=== PATIENT | female | born 1950 | race Asian ===

== ENCOUNTER 2021-01-12 09:12 | Inpatient (IN) | payer MEDICAID ==
[~2021-01-12] VITALS: Ht 142.2 cm; Wt 54.4 kg
[2021-01-12] MEDS ORDERED: KETOROLAC 30MG/ML VIAL IV STA (10:53)
[2021-01-12 12:00] LABS: CLARITY URINE CLEAR (CLEAR); COLOR URINE YELLOW (YELLOW); KETONES URINE NEGATIVE (NEGATIVE); LEUKOCYTE ESTERASE URINE NEGATIVE (NEGATIVE); NITRITE URINE NEGATIVE (NEGATIVE); OCCULT BLOOD URINE NEGATIVE (NEGATIVE); PH URINE 5.5 (4.5-8.0); PROTEIN URINE 1+ (NEGATIVE); SPECIFIC GRAVITY URINE 1.007 (1.005-1.030); UROBILINOGEN URINE 0.2 E.U./dL (0.2-1.0)
[2021-01-12 12:02] LABS: BASOPHILS % 0.9 % (0.0-2.0); EOSINOPHILS % 6.8 % (0.0-5.0); HEMATOCRIT. 28.2 % (36.0-48.0); HEMOGLOBIN. 9.5 g/dL (12.0-16.0); LYMPHOCYTES % 22.8 % (20.0-50.0); MEAN CORPUSCULAR HEMOGLOBIN 31.4 pg (28.0-32.0); MEAN PLATELET VOLUME 7.6 fl (7.4-10.4); NEUTROPHILS % 62.5 % (40.0-76.0); PLATELET 235 x1000/uL (130-400); RED BLOOD CELL COUNT 3.03 mill/uL (4.2-5.4); RED CELL DISTRIBUTION WIDTH 13.4 % (11.6-14.6)
[2021-01-12 12:03] LABS: CHLORIDE 116 mEq/L (98-107)
[2021-01-12] MEDS ORDERED: FUROSEMIDE 100MG/10ML VIAL IV STA (12:14)
[2021-01-12] MEDS ORDERED: ALBUTEROL (0.083%) 2.5MG/3ML NEB HHN ONE (12:15)
[2021-01-12] MEDS ORDERED: INSULIN REGULAR (HUMULIN R) 300UNITS/3ML VIAL IV ONE (12:15)
[2021-01-12] MEDS ORDERED: DEXTROSE 50% WATER 50ML SYRINGE IV ONE (12:15)
[2021-01-12] MEDS ORDERED: CALCIUM CHLORIDE 1GM/10ML SYR IV ONE (12:15)
[2021-01-12] MEDS ORDERED: SODIUM BICARBONATE 8.4% 1 MEQ/ML 50ML SYR IV ONE (12:15)
[2021-01-12] MEDS ORDERED: SODIUM CHLORIDE 0.9% 1,000 ML IV ONE (13:00)
[2021-01-12] MEDS ORDERED: ENOXAPARIN 40MG/0.4ML SYR SUBCUT SCH (13:45)
[2021-01-12] MEDS ORDERED: DOCUSATE SODIUM 100MG CAPSULE PO PRN (13:45)
[2021-01-12] MEDS ORDERED: HYDROCODONE/ACETAMINOPHEN 5/325MG TABLET PO PRN (13:45)
[2021-01-12] MEDS ORDERED: NITROGLYCERIN 0.4MG TABLET SL SL PRN (13:45)
[2021-01-12] MEDS ORDERED: ONDANSETRON HCL 4MG/2ML INJ IV PRN (13:45)
[2021-01-12] MEDS ORDERED: ACETAMINOPHEN 325MG TABLET PO PRN (13:45)
[2021-01-12] MEDS ORDERED: GUAIFENESIN 200MG/10ML SUGAR FREE UDC PO PRN (13:45)
[2021-01-12] MEDS ORDERED: NALOXONE HCL 0.4MG/ML VIAL IV PRN (13:45)
[2021-01-12] MEDS ORDERED: CLONIDINE 0.1MG TABLET PO PRN (13:45)
[2021-01-12] MEDS ORDERED: MAGNESIUM/ALUMINUM HYDROXIDE/SIMETHICONE 30ML UDC PO PRN (13:45)
[2021-01-12] MEDS ORDERED: ENOXAPARIN 30MG/0.3ML SYR SUBCUT SCH (14:00)
[2021-01-12 14:47] LABS: CREATINE KINASE 96 IU/L (26-192)
[2021-01-12 20:45] VITALS: BP 104/40
[2021-01-12] MEDS ORDERED: DEXTROSE 50% WATER 50ML SYRINGE IV PRN (23:45)
[2021-01-12] MEDS: INSULIN LISPRO 100 UNITS/ML SUBCUT SCH (23:55)
[2021-01-13] VITALS: BP 106/55
[2021-01-13] MEDS ORDERED: SODIUM POLYSTYRENE SULFONATE 15 G/60 ML BOT PO NR (01:30)
[2021-01-13 04:00] VITALS: BP 126/65
[2021-01-13 06:06] LABS: BASOPHILS % 0.9 % (0.0-2.0); HEMATOCRIT. 30.8 % (36.0-48.0); HEMOGLOBIN. 10.2 g/dL (12.0-16.0); LYMPHOCYTES % 21.6 % (20.0-50.0); MEAN CORPUSCULAR HEMOGLOBIN 30.9 pg (28.0-32.0); MEAN CORPUSCULAR VOLUME 93.2 fL (81.0-99.0); MEAN PLATELET VOLUME 7.9 fl (7.4-10.4); MONOCYTES % 9.5 % (2.0-8.0); PLATELET 250 x1000/uL (130-400); RED BLOOD CELL COUNT 3.31 mill/uL (4.2-5.4); RED CELL DISTRIBUTION WIDTH 13.6 % (11.6-14.6)
[2021-01-13] MEDS ORDERED: ATOR10TA69 MT (06:13)
[2021-01-13] MEDS ORDERED: FERR324T4 MT (06:13)
[2021-01-13] MEDS ORDERED: LOSA25TA26 MT (06:13)
[2021-01-13] MEDS ORDERED: GABA-529 MT (06:13)
[2021-01-13] MEDS ORDERED: TOPUD MT (06:13)
[2021-01-13] MEDS ORDERED: HYDR473S50 PO (06:13)
[2021-01-13] MEDS ORDERED: HYDR10TA34 MT (06:13)
[2021-01-13] MEDS ORDERED: METF-414 MT (06:13)
[2021-01-13 06:32] LABS: CHLORIDE 113 mEq/L (98-107)
[2021-01-13 06:48] LABS: LDL CHOLESTEROL 55 mg/dL (5-100)
[2021-01-13 06:52] LABS: HDL CHOLESTEROL 52 mg/dL (40-59)
[2021-01-13] MEDS: BLOOD SUGAR DIAGNOSTIC STRIP TEST SCH ×2 (07:10→11:51)
[2021-01-13] MEDS: INSULIN LISPRO 100 UNITS/ML SUBCUT SCH ×2 (07:17→12:58)
[2021-01-13 07:59] VITALS: BP 99/58
[2021-01-13] MEDS ORDERED: ASPIRIN 81MG EC TABLET PO SCH (09:00)
[2021-01-13 12:06] VITALS: BP 107/51
[2021-01-13 12:34] VITALS: BP 107/51
== END 2021-01-13 13:55 | disposition home or self-care (01) | DRG 203 ==
LOC: ER 09:12 → 6WST 13:00 → ENRESERV 20:03
PROVIDERS: ADMIT Hospitalist; ATTEND Hospitalist
DX: M94.0 Chondrocostal junction syndrome [Tietze] (principal); N17.9 Acute kidney failure, unspecified; E44.1 Mild protein-calorie malnutrition; D63.8 Anemia in other chronic diseases classified elsewhere; J44.9 Chronic obstructive pulmonary disease, unspecified; R74.01 Elevation of levels of liver transaminase levels; Z20.822 Contact with and (suspected) exposure to COVID-19; E11.9 Type 2 diabetes mellitus without complications; E87.5 Hyperkalemia; Z79.84 Long term (current) use of oral hypoglycemic drugs; Z68.26 Body mass index [BMI] 26.0-26.9, adult
CPT/HCPCS: 36415; 71045; 80048; 80053; 80061; 81003; 82550; 82962; 83036; 83880; 84484; 85025; 87426; 93005; 93306; 93970; 94644; 99291; J1650; J1815; J1885; J1940; J3490; J7030

== ENCOUNTER 2021-11-17 19:25 | Inpatient (IN) | payer MEDICAID ==
[~2021-11-17] VITALS: Ht 137.2 cm; Wt 56.2 kg
[~2021-11-17 19:25] MED LIST: ATOR10TA69 MT; FERR324T4 MT; GABA-529 MT; HYDR10TA34 MT; HYDR473S50 PO; LOSA25TA26 MT; METF-414 MT; TOPUD MT
[2021-11-17] MEDS ORDERED: ASPIRIN 81MG TABLET PO ONE (19:45)
[2021-11-17] MEDS ORDERED: KETOROLAC 15MG/ML VIAL IV ONE (19:45)
[2021-11-17 20:18] LABS: BASOPHILS % 0.7 % (0.0-2.0); EOSINOPHILS % 6.7 % (0.0-5.0); HEMOGLOBIN. 9.8 g/dL (12.0-16.0); LYMPHOCYTES % 35.3 % (20.0-50.0); MEAN CORPUSCULAR HEMOGLOBIN 31.2 pg (28.0-32.0); MEAN CORPUSCULAR VOLUME 94.8 fL (81.0-99.0); MEAN PLATELET VOLUME 7.9 fl (7.4-10.4); MONOCYTES % 8.6 % (2.0-8.0); NEUTROPHILS % 48.7 % (40.0-76.0); PLATELET 195 x1000/uL (130-400); RED BLOOD CELL COUNT 3.16 mill/uL (4.2-5.4); RED CELL DISTRIBUTION WIDTH 13.3 % (11.6-14.6)
[2021-11-17 20:31] LABS: CHLORIDE 110 mEq/L (98-107)
[2021-11-17 20:39] LABS: CREATINE KINASE 195 IU/L (26-192)
[2021-11-18] MEDS ORDERED: ACETAMINOPHEN 500MG TABLET PO NR ×2 (04:15→06:30)
[2021-11-18] MEDS ORDERED: SODIUM CHLORIDE 0.9% 1,000 ML IV ONE (04:45)
[2021-11-18] MEDS ORDERED: KETOROLAC 15MG/ML VIAL IV NR (06:30)
[2021-11-18] MEDS ORDERED: ASPIRIN 81MG TABLET PO NR (06:30)
[2021-11-18] MEDS ORDERED: ACETAMINOPHEN 325MG TABLET PO PRN (06:45)
[2021-11-18] MEDS ORDERED: ONDANSETRON HCL 4MG/2ML INJ IV PRN (06:45)
[2021-11-18] MEDS ORDERED: CLONIDINE 0.1MG TABLET PO PRN (06:45)
[2021-11-18] MEDS ORDERED: KETOROLAC 15MG/ML VIAL IV PRN (06:45)
[2021-11-18] MEDS ORDERED: MAGNESIUM/ALUMINUM HYDROXIDE/SIMETHICONE 30ML UDC PO PRN (06:45)
[2021-11-18] MEDS ORDERED: IPRATROPIUM/ALBUTEROL 0.5-3(2.5)MG/3ML NEB NEB PRN (06:45)
[2021-11-18] MEDS ORDERED: NITROGLYCERIN 0.4MG TABLET SL SL PRN (06:45)
[2021-11-18] MEDS ORDERED: GUAIFENESIN 200MG/10ML SUGAR FREE UDC PO PRN (06:45)
[2021-11-18] MEDS ORDERED: ZOLPIDEM TARTRATE 5MG TABLET PO PRN (06:45)
[2021-11-18] MEDS ORDERED: DOCUSATE SODIUM 100MG CAPSULE PO PRN (06:45)
[2021-11-18] MEDS ORDERED: DEXTROSE 50% WATER 50ML SYRINGE IV PRN (06:45)
[2021-11-18] MEDS: SODIUM CHLORIDE 0.9% 1,000 ML IV SCH (07:06)
[2021-11-18] MEDS: INSULIN LISPRO 100 UNITS/ML SUBCUT SCH ×4 (08:20→21:44)
[2021-11-18 08:46] LABS: T4 FREE 1.07 ng/dL (0.76-1.46)
[2021-11-18] MEDS: ASPIRIN 325MG EC TABLET PO SCH (09:11)
[2021-11-18] MEDS: AMLODIPINE 10MG TABLET PO SCH (09:12)
[2021-11-18] MEDS: FAMOTIDINE 20MG TABLET PO SCH (09:13)
[2021-11-18] MEDS: BLOOD SUGAR DIAGNOSTIC STRIP TEST SCH ×4 (09:13→21:23)
[2021-11-18] MEDS: ENOXAPARIN 30MG/0.3ML SYR SUBCUT SCH (09:15)
[2021-11-18 12:55] LABS: CLARITY URINE CLEAR (CLEAR); COLOR URINE YELLOW (YELLOW); KETONES URINE NEGATIVE (NEGATIVE); LEUKOCYTE ESTERASE URINE NEGATIVE (NEGATIVE); NITRITE URINE NEGATIVE (NEGATIVE); OCCULT BLOOD URINE NEGATIVE (NEGATIVE); PH URINE 5.5 (4.5-8.0); PROTEIN URINE NEGATIVE (NEGATIVE); UROBILINOGEN URINE 0.2 E.U./dL (0.2-1.0)
[2021-11-18 13:13] LABS: *AMPHETAMINES SCREEN URINE NEGATIVE (NEGATIVE); *BARBITURATES SCREEN URINE NEGATIVE (NEGATIVE); *BENZODIAZEPINES SCREEN URINE NEGATIVE (NEGATIVE); *COCAINE SCREEN URINE NEGATIVE (NEGATIVE); CANNABINOID URINE SCREEN NEGATIVE (NEGATIVE); METHADONE URINE SCREEN NEGATIVE (NEGATIVE); OPIATES URINE SCREEN NEGATIVE (NEGATIVE); PHENCYCLIDINE URINE SCREEN NEGATIVE (NEGATIVE)
[2021-11-18 20:00] VITALS: BP 138/73
[2021-11-18 21:33] LABS: CREATINE KINASE MB FRACTION 1.8 ng/mL (0.5-3.6)
[2021-11-18] MEDS ORDERED: FURO40TA5 MT (23:21)
[2021-11-18] MEDS ORDERED: ALOG25TA2 PO (23:21)
[2021-11-18] MEDS ORDERED: HYDR50SY PO (23:21)
[2021-11-18] MEDS ORDERED: ASCO500C15 MT (23:21)
[2021-11-18] MEDS ORDERED: ASPI-1497 MT (23:21)
[2021-11-18] MEDS ORDERED: MULT-1146 MT (23:21)
[2021-11-18] MEDS ORDERED: FERR325T30 PO (23:21)
[2021-11-18] MEDS ORDERED: TYLENOL CODEINE PO (23:21)
[2021-11-18] MEDS ORDERED: ATOR20TA65 MT (23:21)
[2021-11-18] MEDS ORDERED: BACL-141 MT (23:21)
[2021-11-19] VITALS: BP 147/83
[2021-11-19] MEDS: ACETAMINOPHEN 325MG TABLET PO PRN ×2 (00:46→22:27)
[2021-11-19 02:03] LABS: CREATINE KINASE MB FRACTION 1.4 ng/mL (0.5-3.6)
[2021-11-19] MEDS: SODIUM CHLORIDE 0.9% 1,000 ML IV SCH ×2 (03:50→22:20)
[2021-11-19 04:00] VITALS: BP 127/59
[2021-11-19] MEDS ORDERED: *PATIENT'S OWN MEDICATION STORAGE XX SCH (04:45)
[2021-11-19] MEDS: BLOOD SUGAR DIAGNOSTIC STRIP TEST SCH ×4 (07:04→20:27)
[2021-11-19 07:10] LABS: CHLORIDE 113 mEq/L (98-107)
[2021-11-19 07:17] LABS: PHOSPHORUS 3.8 mg/dL (2.5-4.9)
[2021-11-19] MEDS: INSULIN LISPRO 100 UNITS/ML SUBCUT SCH ×4 (07:45→20:27)
[2021-11-19 08:00] VITALS: BP 137/80
[2021-11-19 08:01] LABS: BASOPHILS % 0.5 % (0.0-2.0); EOSINOPHILS % 6.9 % (0.0-5.0); HEMATOCRIT. 28.3 % (36.0-48.0); HEMOGLOBIN. 9.4 g/dL (12.0-16.0); LYMPHOCYTES % 28.5 % (20.0-50.0); MEAN CORPUSCULAR HEMOGLOBIN 31.3 pg (28.0-32.0); MEAN CORPUSCULAR VOLUME 93.8 fL (81.0-99.0); MEAN PLATELET VOLUME 8.6 fl (7.4-10.4); MONOCYTES % 8.5 % (2.0-8.0); NEUTROPHILS % 55.6 % (40.0-76.0); PLATELET 181 x1000/uL (130-400); RED BLOOD CELL COUNT 3.02 mill/uL (4.2-5.4); RED CELL DISTRIBUTION WIDTH 13.1 % (11.6-14.6)
[2021-11-19] MEDS: ASPIRIN 325MG EC TABLET PO SCH (09:09)
[2021-11-19] MEDS: ENOXAPARIN 30MG/0.3ML SYR SUBCUT SCH (09:10)
[2021-11-19] MEDS: FAMOTIDINE 20MG TABLET PO SCH (09:10)
[2021-11-19] MEDS: AMLODIPINE 10MG TABLET PO SCH (09:10)
[2021-11-19 12:00] VITALS: BP 145/70
[2021-11-19 16:00] VITALS: BP 144/69
[2021-11-19 20:00] VITALS: BP 138/72
[2021-11-20] VITALS: BP 114/52
[2021-11-20 04:00] VITALS: BP 134/64
[2021-11-20] MEDS: BLOOD SUGAR DIAGNOSTIC STRIP TEST SCH ×4 (07:35→21:46)
[2021-11-20] MEDS: INSULIN LISPRO 100 UNITS/ML SUBCUT SCH ×4 (07:35→21:57)
[2021-11-20 08:00] VITALS: BP 138/60
[2021-11-20] MEDS: FAMOTIDINE 20MG TABLET PO SCH (08:53)
[2021-11-20] MEDS: ASPIRIN 325MG EC TABLET PO SCH (08:53)
[2021-11-20] MEDS: AMLODIPINE 10MG TABLET PO SCH (08:54)
[2021-11-20] MEDS: ENOXAPARIN 30MG/0.3ML SYR SUBCUT SCH (08:54)
[2021-11-20 12:00] VITALS: BP 132/54
[2021-11-20 16:00] VITALS: BP 95/59
[2021-11-20] MEDS: SODIUM CHLORIDE 0.9% 1,000 ML IV SCH (18:53)
[2021-11-20 20:00] VITALS: BP 131/66
[2021-11-21] VITALS: BP 138/88
[2021-11-21 04:00] VITALS: BP 119/68
[2021-11-21] MEDS: BLOOD SUGAR DIAGNOSTIC STRIP TEST SCH (07:40)
[2021-11-21 08:00] VITALS: BP 140/65
[2021-11-21] MEDS: INSULIN LISPRO 100 UNITS/ML SUBCUT SCH (08:10)
[2021-11-21] MEDS: ASPIRIN 325MG EC TABLET PO SCH (08:41)
[2021-11-21] MEDS: AMLODIPINE 10MG TABLET PO SCH (08:41)
[2021-11-21] MEDS: FAMOTIDINE 20MG TABLET PO SCH (08:41)
[2021-11-21] MEDS: ENOXAPARIN 30MG/0.3ML SYR SUBCUT SCH (08:42)
[2021-11-21] MEDS: ACETAMINOPHEN 325MG TABLET PO PRN (09:46)
[2021-11-21 10:52] VITALS: BP 140/65
== END 2021-11-21 10:40 | disposition home or self-care (01) | DRG 48 ==
LOC: ER 19:25 → 7WST 11-18 04:43 → ENRESERV 11-18 09:05 → CANRESERV 11-18 09:05 → ENRESERV 11-18 17:17
PROVIDERS: ADMIT Internal Medicine; ATTEND Internal Medicine
DX: E11.42 Type 2 diabetes mellitus with diabetic polyneuropathy (principal); N17.0 Acute kidney failure with tubular necrosis; E11.22 Type 2 diabetes mellitus with diabetic chronic kidney disease; D63.8 Anemia in other chronic diseases classified elsewhere; I12.9 Hypertensive chronic kidney disease with stage 1 through stage 4 chronic kidney disease, or unspecified chronic kidney disease; N18.9 Chronic kidney disease, unspecified; E78.00 Pure hypercholesterolemia, unspecified; Z20.822 Contact with and (suspected) exposure to COVID-19
CPT/HCPCS: 36415; 71045; 76770; 80048; 80053; 80061; 80305; 81003; 82550; 82553; 82607; 82746; 82962; 83036; 83540; 83550; 83605; 83735; 83880; 84100; 84439; 84443; 84484; 85025; 87426; 93005; 93970; 97162; 97165; 99285; C1893; C9803; J1650; J1815; J1885; J7030

== ENCOUNTER 2022-02-14 17:02 | Inpatient (IN) | payer MEDICAID ==
[~2022-02-14] VITALS: Ht 142.2 cm; Wt 61.2 kg
[~2022-02-14 17:02] MED LIST changes: +ALOG25TA2 PO; +ASCO500C15 MT; +ASPI-1497 MT; -ATOR10TA69 MT; +ATOR20TA65 MT; +BACL-141 MT; +FERR325T30 PO; +FURO40TA5 MT; -HYDR10TA34 MT; +HYDR50SY PO; +MULT-1146 MT; +TYLENOL CODEINE PO
[2022-02-14] MEDS ORDERED: SODIUM CHLORIDE 0.9% 1000ML BAG (SEPSIS BOLUS) IV ONE (18:30)
[2022-02-14] MEDS ORDERED: PIPERACILLIN/TAZ 3.375G PREMIX 50 ML IV ONE (18:30)
[2022-02-14] MEDS ORDERED: ACETAMINOPHEN 325MG TABLET PO STA (18:30)
[2022-02-14 19:05] LABS: CLARITY URINE CLEAR (CLEAR); COLOR URINE YELLOW (YELLOW); KETONES URINE NEGATIVE (NEGATIVE); LEUKOCYTE ESTERASE URINE NEGATIVE (NEGATIVE); NITRITE URINE NEGATIVE (NEGATIVE); OCCULT BLOOD URINE NEGATIVE (NEGATIVE); PH URINE 5.5 (4.5-8.0); PROTEIN URINE 2+ (NEGATIVE); SPECIFIC GRAVITY URINE 1.009 (1.005-1.030); UROBILINOGEN URINE 0.2 E.U./dL (0.2-1.0)
[2022-02-14 19:07] LABS: BASOPHILS % 0.1 % (0.0-2.0); EOSINOPHILS % 0.8 % (0.0-5.0); HEMOGLOBIN. 9.2 g/dL (12.0-16.0); LYMPHOCYTES % 11.5 % (20.0-50.0); MEAN CORPUSCULAR HEMOGLOBIN 30.2 pg (28.0-32.0); MEAN CORPUSCULAR VOLUME 92.2 fL (81.0-99.0); MEAN PLATELET VOLUME 8.4 fl (7.4-10.4); MONOCYTES % 1.5 % (2.0-8.0); NEUTROPHILS % 86.1 % (40.0-76.0); PLATELET 138 x1000/uL (130-400); RED BLOOD CELL COUNT 3.04 mill/uL (4.2-5.4); RED CELL DISTRIBUTION WIDTH 13.2 % (11.6-14.6)
[2022-02-14 19:50] LABS: CHLORIDE 105 mEq/L (98-107)
[2022-02-14] MEDS ORDERED: VANCOMYCIN 1G PREMIX 200 ML IV ONE (21:15)
[2022-02-14] MEDS ORDERED: HEPARIN 25,000 UNITS PREMIX 250 ML IV ONE (22:00)
[2022-02-14] MEDS ORDERED: HEPARIN 5000 UNITS/ML VIAL IV ONE (22:00)
[2022-02-14] MEDS ORDERED: ASPIRIN 81MG TABLET PO ONE (22:00)
[2022-02-14] MEDS ORDERED: HEPARIN 5000 UNITS/ML VIAL IV SCH (22:30)
[2022-02-14] MEDS: HEPARIN 25,000 UNITS PREMIX 250 ML IV PRN (23:10)
[2022-02-15] VITALS (11 sets, daily range): BP systolic 99–145; BP diastolic 52–78
[2022-02-15] MEDS ORDERED: IPRATROPIUM/ALBUTEROL 0.5-3(2.5)MG/3ML NEB HHN PRN (01:15)
[2022-02-15] MEDS ORDERED: ENOXAPARIN 40MG/0.4ML SYR SUBCUT SCH (01:15)
[2022-02-15] MEDS ORDERED: DOCUSATE SODIUM 100MG CAPSULE PO PRN (01:15)
[2022-02-15] MEDS ORDERED: MAGNESIUM/ALUMINUM HYDROXIDE/SIMETHICONE 30ML UDC PO PRN (01:15)
[2022-02-15] MEDS ORDERED: ACETAMINOPHEN 325MG TABLET PO PRN ×2 (01:15)
[2022-02-15] MEDS ORDERED: DEXTROSE 50% WATER 50ML SYRINGE IV PRN (01:15)
[2022-02-15] MEDS ORDERED: SODIUM CHLORIDE 0.9% 1,000 ML IV SCH (01:30)
[2022-02-15 02:03] LABS: TOTAL IRON BINDING CAPACITY 158 ug/dL (250-450)
[2022-02-15 02:46] LABS: VITAMIN B12 SERUM 1150 pg/mL (211-911)
[2022-02-15] MEDS: HYDROCODONE/ACETAMINOPHEN 5/325MG TABLET PO PRN ×2 (03:19→20:32)
[2022-02-15 04:16] LABS: FOLIC ACID (FOLATE) SERUM > 20.00 ng/mL (>5.38)
[2022-02-15 04:17] LABS: FERRITIN 314 ng/mL (10-291)
[2022-02-15] MEDS ORDERED: HEPARIN 5000 UNITS/ML VIAL IV PRN ×2 (05:30)
[2022-02-15 06:25] LABS: CREATINE KINASE MB FRACTION 3.1 ng/mL (0.5-3.6)
[2022-02-15] MEDS ORDERED: FUROSEMIDE 40MG TABLET PO SCH (07:15)
[2022-02-15] MEDS: BLOOD SUGAR DIAGNOSTIC STRIP TEST SCH ×4 (08:19→20:32)
[2022-02-15] MEDS: INSULIN LISPRO 100 UNITS/ML SUBCUT SCH ×4 (08:21→20:32)
[2022-02-15] MEDS: BACLOFEN 10MG TABLET PO SCH ×3 (08:25→17:00)
[2022-02-15] MEDS: FERROUS SULFATE 325MG TABLET PO SCH (08:25)
[2022-02-15] MEDS: ASPIRIN 81MG EC TABLET PO SCH (08:25)
[2022-02-15] MEDS: HYDROXYZINE 25MG TABLET PO SCH (08:36)
[2022-02-15] MEDS ORDERED: PIPERACILLIN/TAZOBACTAM 3.375 G in DEXTROSE 5% WATER 50 ML IV SCH (09:00)
[2022-02-15] MEDS ORDERED: LOSARTAN POTASSIUM 25 MG TABLET PO SCH (09:00)
[2022-02-15] MEDS ORDERED: HYDROXYZINE HCL 25 MG PO SCH (09:00)
[2022-02-15] MEDS ORDERED: GABAPENTIN 100MG CAPSULE PO SCH (09:00)
[2022-02-15] MEDS ORDERED: MEDICATION NOT ON FORMULARY EA (Ferrous Sulfate 1 TAB) MT SCH (09:00)
[2022-02-15] MEDS: PIPERACILLIN/TAZOBACTAM 3.375 G in DEXTROSE 5% WATER 50 ML IV SCH ×2 (09:28→20:31)
[2022-02-15 17:48] LABS: CREATINE KINASE MB FRACTION 3.4 ng/mL (0.5-3.6)
[2022-02-15] MEDS: ATORVASTATIN CALCIUM 20MG TABLET PO SCH (20:31)
[2022-02-15] MEDS ORDERED: VANCOMYCIN 500MG PREMIX 100 ML IV NR (21:00)
[2022-02-15 23:47] LABS: CREATINE KINASE MB FRACTION 2.7 ng/mL (0.5-3.6)
[2022-02-16] VITALS (12 sets, daily range): BP systolic 104–179; BP diastolic 58–92
[2022-02-16 06:25] LABS: HEMATOCRIT. 26.6 % (36.0-48.0); HEMOGLOBIN. 8.7 g/dL (12.0-16.0); MEAN CORPUSCULAR HEMOGLOBIN 30.6 pg (28.0-32.0); MEAN CORPUSCULAR VOLUME 93.8 fL (81.0-99.0); MEAN PLATELET VOLUME 8.5 fl (7.4-10.4); PLATELET 145 x1000/uL (130-400); RED BLOOD CELL COUNT 2.84 mill/uL (4.2-5.4); RED CELL DISTRIBUTION WIDTH 14.1 % (11.6-14.6)
[2022-02-16] MEDS: BLOOD SUGAR DIAGNOSTIC STRIP TEST SCH ×4 (07:30→20:34)
[2022-02-16] MEDS: INSULIN LISPRO 100 UNITS/ML SUBCUT SCH ×4 (08:00→20:33)
[2022-02-16 08:37] LABS: PLATELET ESTIMATE NORMAL
[2022-02-16] MEDS: ONDANSETRON HCL 4MG/2ML INJ IV PRN (09:07)
[2022-02-16] MEDS: PIPERACILLIN/TAZOBACTAM 3.375 G in DEXTROSE 5% WATER 50 ML IV SCH ×2 (09:44→20:34)
[2022-02-16] MEDS: FERROUS SULFATE 325MG TABLET PO SCH (09:55)
[2022-02-16] MEDS: ASPIRIN 81MG EC TABLET PO SCH (09:55)
[2022-02-16] MEDS: BACLOFEN 10MG TABLET PO SCH ×3 (09:55→17:00)
[2022-02-16] MEDS: HYDROXYZINE 25MG TABLET PO SCH (09:55)
[2022-02-16] MEDS: HEPARIN 25,000 UNITS PREMIX 250 ML IV PRN (10:43)
[2022-02-16 10:59] LABS: CHLORIDE 112 mEq/L (98-107)
[2022-02-16 11:14] LABS: HDL CHOLESTEROL 17 mg/dL (40-59); LDL CHOLESTEROL 43 mg/dL (5-100); T4 FREE 1.53 ng/dL (0.76-1.46)
[2022-02-16 16:28] LABS: BG BASE EXCESS -7.2 mmol/L (-2.0-2.0); BG CARBOXYHEMOGLOBIN 0.3 % (0.5-1.5); BG DEOXYHEMOGLOBIN 4.2 % (0.0-5.0); BG FRACTION INSPIRED OXYGEN 21; BG HCO3 ACT 17.4 mmol/L (22.0-26.0); BG METHEMOGLOBIN 0.2 % (0.0-1.5); BG OXYGEN SATURATION 95.8 % (92.0-98.5); BG OXYHEMOGLOBIN 95.3 % (94.0-97.0); BG PCO2 31.4 mmHg (35.0-45.0); BG PH 7.361 (7.350-7.450); BG PO2 81.8 mmHg (75.0-100.0); BG SAMPLE SITE RIGHT BRACHIAL; BG TOTAL HEMOGLOBIN 9.2 g/dL (12.0-18.0); BG VENT MODE ROOM AIR
[2022-02-16] MEDS ORDERED: SODIUM POLYSTYRENE SULFONATE 15 G/60 ML BOT PO NR (17:00)
[2022-02-16] MEDS ORDERED: SODIUM POLYSTYRENE SULFONATE 15 G/60 ML BOT PO ONE (17:00)
[2022-02-16 18:27] LABS: PARTIAL THROMBOPLASTIN TIME 48.7 sec (23.4-31.0); PROTHROMBIN TIME 10.3 sec (9.6-11.0)
[2022-02-16] MEDS ORDERED: SODIUM POLYSTYRENE SULFONATE 15 G/60 ML BOT PR NR (20:00)
[2022-02-16] MEDS: ATORVASTATIN CALCIUM 20MG TABLET PO SCH (20:34)
[2022-02-17] VITALS (12 sets, daily range): BP systolic 112–160; BP diastolic 66–78
[2022-02-17] MEDS: BLOOD SUGAR DIAGNOSTIC STRIP TEST SCH ×4 (07:30→21:31)
[2022-02-17] MEDS: INSULIN LISPRO 100 UNITS/ML SUBCUT SCH ×4 (08:00→21:00)
[2022-02-17] MEDS: ASPIRIN 81MG EC TABLET PO SCH (10:22)
[2022-02-17] MEDS: BACLOFEN 10MG TABLET PO SCH ×3 (10:22→17:51)
[2022-02-17] MEDS: FERROUS SULFATE 325MG TABLET PO SCH (10:22)
[2022-02-17] MEDS: PIPERACILLIN/TAZOBACTAM 3.375 G in DEXTROSE 5% WATER 50 ML IV SCH ×2 (10:23→21:31)
[2022-02-17] MEDS: HYDROXYZINE 25MG TABLET PO SCH (10:25)
[2022-02-17 11:25] LABS: CHLORIDE 112 mEq/L (98-107)
[2022-02-17] MEDS: SODIUM CHLORIDE 0.9% 1,000 ML IV SCH (11:30)
[2022-02-17] MEDS: CITRIC ACID/SODIUM CITRATE SOLN 15ML UDC PO SCH ×2 (13:00→17:51)
[2022-02-17] MEDS ORDERED: VANCOMYCIN 500MG PREMIX 100 ML IV NR (14:00)
[2022-02-17] MEDS: ATORVASTATIN CALCIUM 20MG TABLET PO SCH ×2 (21:00→21:31)
[2022-02-18] VITALS (12 sets, daily range): BP systolic 120–160; BP diastolic 55–80
[2022-02-18] MEDS: SODIUM CHLORIDE 0.9% 1,000 ML IV SCH ×2 (00:50→06:17)
[2022-02-18] MEDS: ONDANSETRON HCL 4MG/2ML INJ IV PRN (01:29)
[2022-02-18 06:03] LABS: BASOPHILS % 0.5 % (0.0-2.0); EOSINOPHILS % 0.8 % (0.0-5.0); HEMATOCRIT. 24.6 % (36.0-48.0); HEMOGLOBIN. 8.2 g/dL (12.0-16.0); LYMPHOCYTES % 19.2 % (20.0-50.0); MEAN CORPUSCULAR HEMOGLOBIN 30.7 pg (28.0-32.0); MEAN CORPUSCULAR VOLUME 91.7 fL (81.0-99.0); MEAN PLATELET VOLUME 8.1 fl (7.4-10.4); MONOCYTES % 7.7 % (2.0-8.0); NEUTROPHILS % 71.8 % (40.0-76.0); PLATELET 207 x1000/uL (130-400); RED BLOOD CELL COUNT 2.68 mill/uL (4.2-5.4); RED CELL DISTRIBUTION WIDTH 13.2 % (11.6-14.6)
[2022-02-18] MEDS: BLOOD SUGAR DIAGNOSTIC STRIP TEST SCH ×4 (07:30→21:16)
[2022-02-18] MEDS: INSULIN LISPRO 100 UNITS/ML SUBCUT SCH ×4 (08:00→21:00)
[2022-02-18] MEDS: ASPIRIN 81MG EC TABLET PO SCH (09:00)
[2022-02-18] MEDS: HYDROXYZINE 25MG TABLET PO SCH (09:00)
[2022-02-18] MEDS: BACLOFEN 10MG TABLET PO SCH ×3 (09:00→16:50)
[2022-02-18] MEDS: CITRIC ACID/SODIUM CITRATE SOLN 15ML UDC PO SCH ×3 (09:00→16:50)
[2022-02-18] MEDS: FERROUS SULFATE 325MG TABLET PO SCH (09:00)
[2022-02-18] MEDS: PIPERACILLIN/TAZOBACTAM 3.375 G in DEXTROSE 5% WATER 50 ML IV SCH ×2 (09:32→21:15)
[2022-02-18 11:01] LABS: CHLORIDE 113 mEq/L (98-107)
[2022-02-18 11:10] LABS: PHOSPHORUS 5.4 mg/dL (2.5-4.9)
[2022-02-18] MEDS ORDERED: LEVETIRACETAM 1000MG PREMIX 100 ML IV NR (11:30)
[2022-02-18] MEDS ORDERED: LEVETIRACETAM 1,000 MG in SODIUM CHLORIDE 0.9% 100 ML IV NR (12:00)
[2022-02-18] MEDS: DEXT 5%/0.9% NACL 1,000 ML IV SCH (14:31)
[2022-02-18] MEDS ORDERED: VANCOMYCIN 500MG PREMIX 100 ML IV NR (15:00)
[2022-02-18] MEDS ORDERED: NALOXONE HCL 0.4MG/ML VIAL IV PRN (17:00)
[2022-02-18] MEDS ORDERED: LEVETIRACETAM 500 MG in SODIUM CHLORIDE 0.9% 100 ML IV SCH (18:00)
[2022-02-18] MEDS: PANTOPRAZOLE SODIUM 40 MG/VIAL IV SCH (18:18)
[2022-02-18] MEDS: ENOXAPARIN 30MG/0.3ML SYR SUBCUT SCH (18:19)
[2022-02-18 20:49] LABS: CREATINE KINASE 50 IU/L (26-192); CREATINE KINASE MB FRACTION < 1.0 ng/mL (0.5-3.6)
[2022-02-18] MEDS: ATORVASTATIN CALCIUM 20MG TABLET PO SCH (21:00)
[2022-02-18] MEDS: LEVETIRACETAM 500MG PREMIX 100 ML IV SCH (21:17)
[2022-02-19] VITALS (9 sets, daily range): BP systolic 137–175; BP diastolic 65–98
[2022-02-19] MEDS: DEXT 5%/0.9% NACL 1,000 ML IV SCH ×2 (03:23→17:13)
[2022-02-19] MEDS: CLONIDINE 0.1MG TABLET PO PRN (06:13)
[2022-02-19 07:36] LABS: HEMATOCRIT 26.2 % (36.0-48.0); HEMOGLOBIN 8.6 g/dL (12.0-16.0); MEAN CORPUSCULAR HEMOGLOBIN 30.2 pg (28.0-32.0); MEAN CORPUSCULAR VOLUME 92.2 fL (81.0-99.0); PLATELET 246 x1000/uL (130-400); RED BLOOD CELL COUNT 2.84 mill/uL (4.2-5.4); RED CELL DISTRIBUTION WIDTH 13.5 % (11.6-14.6)
[2022-02-19] MEDS: INSULIN LISPRO 100 UNITS/ML SUBCUT SCH (08:00)
[2022-02-19] MEDS: HYDROXYZINE 25MG TABLET PO SCH (09:00)
[2022-02-19] MEDS: CITRIC ACID/SODIUM CITRATE SOLN 15ML UDC PO SCH ×3 (09:00→17:14)
[2022-02-19] MEDS: BACLOFEN 10MG TABLET PO SCH ×3 (09:00→17:14)
[2022-02-19] MEDS: ASPIRIN 81MG EC TABLET PO SCH (09:00)
[2022-02-19] MEDS: FERROUS SULFATE 325MG TABLET PO SCH (09:00)
[2022-02-19] MEDS: LEVETIRACETAM 500MG PREMIX 100 ML IV SCH ×2 (09:17→22:06)
[2022-02-19] MEDS: PANTOPRAZOLE SODIUM 40 MG/VIAL IV SCH (09:18)
[2022-02-19] MEDS: PIPERACILLIN/TAZOBACTAM 3.375 G in DEXTROSE 5% WATER 50 ML IV SCH ×2 (09:19→22:06)
[2022-02-19] MEDS: ENOXAPARIN 30MG/0.3ML SYR SUBCUT SCH (17:12)
[2022-02-19] MEDS: VANCOMYCIN 750MG PREMIX 150 ML IV SCH (17:13)
[2022-02-19] MEDS: METOPROLOL SUCCINATE 50MG ER TABLET PO SCH (20:00)
[2022-02-19] MEDS: BLOOD SUGAR DIAGNOSTIC STRIP TEST SCH (21:00)
[2022-02-19] MEDS: AMLODIPINE 5MG TABLET PO SCH (22:06)
[2022-02-19] MEDS: ATORVASTATIN CALCIUM 20MG TABLET PO SCH (22:06)
[2022-02-20] VITALS (11 sets, daily range): BP systolic 117–173; BP diastolic 59–95
[2022-02-20] MEDS: DEXT 5%/0.9% NACL 1,000 ML IV SCH ×2 (04:00→17:19)
[2022-02-20 06:01] LABS: HEMATOCRIT 24.8 % (36.0-48.0); HEMOGLOBIN 8.2 g/dL (12.0-16.0); MEAN CORPUSCULAR HEMOGLOBIN 30.2 pg (28.0-32.0); MEAN CORPUSCULAR VOLUME 91.2 fL (81.0-99.0); PLATELET 252 x1000/uL (130-400); RED BLOOD CELL COUNT 2.72 mill/uL (4.2-5.4)
[2022-02-20] MEDS: BLOOD SUGAR DIAGNOSTIC STRIP TEST SCH ×4 (07:30→21:00)
[2022-02-20] MEDS: INSULIN LISPRO 100 UNITS/ML SUBCUT SCH ×4 (08:00→21:00)
[2022-02-20] MEDS: FAMOTIDINE 20MG/2ML VIAL IV SCH (09:24)
[2022-02-20] MEDS: METOPROLOL SUCCINATE 50MG ER TABLET PO SCH (09:24)
[2022-02-20] MEDS: HYDROXYZINE 25MG TABLET PO SCH (09:24)
[2022-02-20] MEDS: BACLOFEN 10MG TABLET PO SCH ×3 (09:25→17:19)
[2022-02-20] MEDS: AMLODIPINE 5MG TABLET PO SCH (09:25)
[2022-02-20] MEDS: FERROUS SULFATE 325MG TABLET PO SCH (09:26)
[2022-02-20] MEDS: CITRIC ACID/SODIUM CITRATE SOLN 15ML UDC PO SCH ×3 (09:26→17:18)
[2022-02-20] MEDS: ASPIRIN 81MG EC TABLET PO SCH (09:26)
[2022-02-20] MEDS: LEVETIRACETAM 500MG PREMIX 100 ML IV SCH (09:27)
[2022-02-20] MEDS: PIPERACILLIN/TAZOBACTAM 3.375 G in DEXTROSE 5% WATER 50 ML IV SCH ×3 (09:27→23:00)
[2022-02-20] MEDS: CLONIDINE 0.1MG TABLET PO PRN (11:03)
[2022-02-20] MEDS: VANCOMYCIN 750MG PREMIX 150 ML IV SCH (13:00)
[2022-02-20] MEDS: ENOXAPARIN 30MG/0.3ML SYR SUBCUT SCH (17:20)
[2022-02-20] MEDS: LEVETIRACETAM 750 MG in SODIUM CHLORIDE 0.9% 100 ML IV SCH (21:00)
[2022-02-20] MEDS: ATORVASTATIN CALCIUM 20MG TABLET PO SCH (21:00)
[2022-02-21] VITALS (10 sets, daily range): BP systolic 91–166; BP diastolic 40–81
[2022-02-21] MEDS: PIPERACILLIN/TAZOBACTAM 3.375 G in DEXTROSE 5% WATER 50 ML IV SCH ×3 (05:29→23:05)
[2022-02-21] MEDS: DEXT 5%/0.9% NACL 1,000 ML IV SCH ×2 (05:41→20:29)
[2022-02-21 06:37] LABS: HEMATOCRIT 27.8 % (36.0-48.0); HEMOGLOBIN 9.1 g/dL (12.0-16.0); MEAN CORPUSCULAR HEMOGLOBIN 30.4 pg (28.0-32.0); MEAN CORPUSCULAR VOLUME 92.4 fL (81.0-99.0); PLATELET 262 x1000/uL (130-400); RED BLOOD CELL COUNT 3.01 mill/uL (4.2-5.4); RED CELL DISTRIBUTION WIDTH 13.2 % (11.6-14.6)
[2022-02-21] MEDS: BLOOD SUGAR DIAGNOSTIC STRIP TEST SCH ×4 (07:30→21:33)
[2022-02-21] MEDS: LEVETIRACETAM 750 MG in SODIUM CHLORIDE 0.9% 100 ML IV SCH ×2 (08:58→21:40)
[2022-02-21] MEDS: AMLODIPINE 10MG TABLET PO SCH (08:58)
[2022-02-21] MEDS: FAMOTIDINE 20MG/2ML VIAL IV SCH (08:58)
[2022-02-21] MEDS: FERROUS SULFATE 325MG TABLET PO SCH (08:58)
[2022-02-21] MEDS: ASPIRIN 81MG EC TABLET PO SCH (08:58)
[2022-02-21] MEDS: BACLOFEN 10MG TABLET PO SCH ×3 (08:58→18:13)
[2022-02-21] MEDS: CITRIC ACID/SODIUM CITRATE SOLN 15ML UDC PO SCH ×3 (08:59→17:00)
[2022-02-21] MEDS: INSULIN LISPRO 100 UNITS/ML SUBCUT SCH ×4 (09:31→21:41)
[2022-02-21] MEDS: METOPROLOL SUCCINATE 50MG ER TABLET PO SCH (10:03)
[2022-02-21] MEDS: VANCOMYCIN 750MG PREMIX 150 ML IV SCH (13:03)
[2022-02-21] MEDS: GUAIFENESIN 200MG/10ML SUGAR FREE UDC PO PRN (13:07)
[2022-02-21] MEDS: ENOXAPARIN 30MG/0.3ML SYR SUBCUT SCH (18:14)
[2022-02-21] MEDS: ATORVASTATIN CALCIUM 20MG TABLET PO SCH (21:40)
[2022-02-22] VITALS (16 sets, daily range): BP systolic 119–170; BP diastolic 55–88
[2022-02-22] MEDS: PIPERACILLIN/TAZOBACTAM 3.375 G in DEXTROSE 5% WATER 50 ML IV SCH ×3 (05:43→22:06)
[2022-02-22] MEDS: CLONIDINE 0.1MG TABLET PO PRN (05:49)
[2022-02-22 07:10] LABS: HEMATOCRIT 27.2 % (36.0-48.0); MEAN CORPUSCULAR HEMOGLOBIN 30.7 pg (28.0-32.0); MEAN CORPUSCULAR VOLUME 92.5 fL (81.0-99.0); PLATELET 321 x1000/uL (130-400); RED BLOOD CELL COUNT 2.94 mill/uL (4.2-5.4); RED CELL DISTRIBUTION WIDTH 13.2 % (11.6-14.6)
[2022-02-22] MEDS: BLOOD SUGAR DIAGNOSTIC STRIP TEST SCH ×4 (07:30→21:00)
[2022-02-22 09:10] LABS: ALDOLASE 5.8 U/L (3.3-10.3)
[2022-02-22] MEDS: FAMOTIDINE 20MG/2ML VIAL IV SCH (09:52)
[2022-02-22] MEDS: LEVETIRACETAM 750 MG in SODIUM CHLORIDE 0.9% 100 ML IV SCH ×2 (09:52→22:05)
[2022-02-22] MEDS: AMLODIPINE 10MG TABLET PO SCH (09:53)
[2022-02-22] MEDS: METOPROLOL SUCCINATE 50MG ER TABLET PO SCH (09:53)
[2022-02-22] MEDS: GUAIFENESIN 200MG/10ML SUGAR FREE UDC PO PRN (09:53)
[2022-02-22] MEDS: BACLOFEN 10MG TABLET PO SCH ×3 (09:54→17:41)
[2022-02-22] MEDS: FERROUS SULFATE 325MG TABLET PO SCH (09:54)
[2022-02-22] MEDS: INSULIN LISPRO 100 UNITS/ML SUBCUT SCH ×4 (09:57→22:07)
[2022-02-22] MEDS: ASPIRIN 81MG EC TABLET PO SCH (09:59)
[2022-02-22] MEDS: VANCOMYCIN 750MG PREMIX 150 ML IV SCH (13:24)
[2022-02-22] MEDS: CITRIC ACID/SODIUM CITRATE SOLN 30ML UDC PO SCH ×2 (13:24→17:41)
[2022-02-22] MEDS: ENOXAPARIN 40MG/0.4ML SYR SUBCUT SCH (17:42)
[2022-02-22] MEDS: DEXT 5%/0.9% NACL 1,000 ML IV SCH (22:05)
[2022-02-22] MEDS: ATORVASTATIN CALCIUM 20MG TABLET PO SCH (22:06)
[2022-02-23] VITALS (13 sets, daily range): BP systolic 112–167; BP diastolic 62–101
[2022-02-23] MEDS: CLONIDINE 0.1MG TABLET PO PRN (05:04)
[2022-02-23] MEDS: PIPERACILLIN/TAZOBACTAM 3.375 G in DEXTROSE 5% WATER 50 ML IV SCH ×3 (05:04→22:56)
[2022-02-23 06:54] LABS: BASOPHILS % 0.9 % (0.0-2.0); EOSINOPHILS % 3.8 % (0.0-5.0); HEMATOCRIT. 26.9 % (36.0-48.0); HEMOGLOBIN. 8.8 g/dL (12.0-16.0); LYMPHOCYTES % 24.1 % (20.0-50.0); MEAN CORPUSCULAR HEMOGLOBIN 30.7 pg (28.0-32.0); MEAN CORPUSCULAR VOLUME 93.6 fL (81.0-99.0); MEAN PLATELET VOLUME 8.2 fl (7.4-10.4); MONOCYTES % 5.7 % (2.0-8.0); NEUTROPHILS % 65.5 % (40.0-76.0); PLATELET 310 x1000/uL (130-400); RED BLOOD CELL COUNT 2.87 mill/uL (4.2-5.4); RED CELL DISTRIBUTION WIDTH 13.3 % (11.6-14.6)
[2022-02-23] MEDS: BLOOD SUGAR DIAGNOSTIC STRIP TEST SCH ×4 (07:30→21:08)
[2022-02-23] MEDS: METOPROLOL SUCCINATE 50MG ER TABLET PO SCH (09:19)
[2022-02-23] MEDS: BACLOFEN 10MG TABLET PO SCH ×3 (09:20→17:36)
[2022-02-23] MEDS: AMLODIPINE 10MG TABLET PO SCH (09:20)
[2022-02-23] MEDS: ASPIRIN 81MG EC TABLET PO SCH (09:20)
[2022-02-23] MEDS: FERROUS SULFATE 325MG TABLET PO SCH (09:20)
[2022-02-23] MEDS: FAMOTIDINE 20MG/2ML VIAL IV SCH (09:21)
[2022-02-23] MEDS: LEVETIRACETAM 750 MG in SODIUM CHLORIDE 0.9% 100 ML IV SCH (09:21)
[2022-02-23] MEDS: CITRIC ACID/SODIUM CITRATE SOLN 30ML UDC PO SCH ×3 (09:21→17:36)
[2022-02-23] MEDS: INSULIN LISPRO 100 UNITS/ML SUBCUT SCH ×4 (09:22→21:25)
[2022-02-23 09:58] LABS: CHLORIDE 111 mEq/L (98-107)
[2022-02-23] MEDS ORDERED: VISCOUS LIDOCAINE 2% 15 ML UDC MM PRN (11:45)
[2022-02-23] MEDS: VANCOMYCIN 750MG PREMIX 150 ML IV SCH (12:57)
[2022-02-23] MEDS: GUAIFENESIN 200MG/10ML SUGAR FREE UDC PO PRN (12:57)
[2022-02-23] MEDS: ENOXAPARIN 40MG/0.4ML SYR SUBCUT SCH (17:36)
[2022-02-23] MEDS ORDERED: LEVETIRACETAM 1000MG PREMIX 100 ML IV SCH (21:00)
[2022-02-23] MEDS: LEVETIRACETAM 1,000 MG in SODIUM CHLORIDE 0.9% 100 ML IV SCH (21:25)
[2022-02-23] MEDS: ATORVASTATIN CALCIUM 20MG TABLET PO SCH (21:35)
[2022-02-24] VITALS (11 sets, daily range): BP systolic 125–174; BP diastolic 60–89
[2022-02-24] MEDS: GUAIFENESIN 200MG/10ML SUGAR FREE UDC PO PRN ×5 (00:11→19:16)
[2022-02-24] MEDS: PIPERACILLIN/TAZOBACTAM 3.375 G in DEXTROSE 5% WATER 50 ML IV SCH (05:36)
[2022-02-24] MEDS: BLOOD SUGAR DIAGNOSTIC STRIP TEST SCH ×2 (07:30→12:30)
[2022-02-24] MEDS: CITRIC ACID/SODIUM CITRATE SOLN 30ML UDC PO SCH ×3 (09:19→17:12)
[2022-02-24] MEDS: METOPROLOL SUCCINATE 50MG ER TABLET PO SCH (09:20)
[2022-02-24] MEDS: ASPIRIN 81MG EC TABLET PO SCH (09:20)
[2022-02-24] MEDS: FERROUS SULFATE 325MG TABLET PO SCH (09:20)
[2022-02-24] MEDS: BACLOFEN 10MG TABLET PO SCH ×3 (09:20→17:12)
[2022-02-24] MEDS: FAMOTIDINE 20MG/2ML VIAL IV SCH (11:54)
[2022-02-24] MEDS: LEVETIRACETAM 1,000 MG in SODIUM CHLORIDE 0.9% 100 ML IV SCH (11:54)
[2022-02-24] MEDS: AMLODIPINE 10MG TABLET PO SCH (11:55)
[2022-02-24] MEDS: INSULIN LISPRO 100 UNITS/ML SUBCUT SCH ×2 (11:56→13:54)
== END 2022-02-24 21:23 | disposition home health service (06) | DRG 720 ==
LOC: ER 17:02 → EDBEDREQ 18:34 → EDBEDREQSVC 22:00 → EDBEDREQ 22:00 → EDBEDREQTM 22:00 → ENRESERV 22:25 → CANRESERV 22:25 → 5EST 23:02 → EDBEDREQSVC 23:03 → EDBEDREQTM 23:06 → ENRESERV 23:26
PROVIDERS: ADMIT Hospitalist; ATTEND Hospitalist
PROC: 4A00X4Z Measurement of Central Nervous Electrical Activity, External Approach (ICD-10-PCS; principal; 2022-02-17)
PROC: 4A00X4Z Measurement of Central Nervous Electrical Activity, External Approach (ICD-10-PCS; 2022-02-19)
PROC: 4A00X4Z Measurement of Central Nervous Electrical Activity, External Approach (ICD-10-PCS; 2022-02-22)
PROC: 4A00X4Z Measurement of Central Nervous Electrical Activity, External Approach (ICD-10-PCS; 2022-02-24)
DX: A41.9 Sepsis, unspecified organism (principal); N17.0 Acute kidney failure with tubular necrosis; I21.A1 Myocardial infarction type 2; E44.0 Moderate protein-calorie malnutrition; G93.41 Metabolic encephalopathy; G82.50 Quadriplegia, unspecified; D50.9 Iron deficiency anemia, unspecified; E11.42 Type 2 diabetes mellitus with diabetic polyneuropathy; R47.01 Aphasia; E11.65 Type 2 diabetes mellitus with hyperglycemia; I10 Essential (primary) hypertension; R74.8 Abnormal levels of other serum enzymes; K02.9 Dental caries, unspecified; L03.211 Cellulitis of face; Z20.822 Contact with and (suspected) exposure to COVID-19; R65.20 Severe sepsis without septic shock; R56.9 Unspecified convulsions; E78.00 Pure hypercholesterolemia, unspecified; Z79.899 Other long term (current) drug therapy; Z79.82 Long term (current) use of aspirin; Z68.30 Body mass index [BMI] 30.0-30.9, adult
CPT/HCPCS: 36415; 36600; 70486; 70551; 71045; 76770; 80048; 80053; 80061; 80202; 81003; 82085; 82375; 82550; 82553; 82607; 82728; 82746; 82805; 82962; 83036; 83519; 83540; 83550; 83605; 83735; 84100; 84145; 84439; 84443; 84484; 85025; 85027; 85379; 85651; 87426; 92610; 93005; 93306; 93970; 97116; 97163; 97165; 97530; 99285; C9113; J1644; J1650; J1815; J1953; J2405; J2543; J3370; J3490; J7030; J7042; J7050; J7060